=== PATIENT | female | born 1965 | race Caucasian/White ===

== ENCOUNTER → 2020-02-23 | Emergency (ER) | payer OTHER ==
[~2020-02-23] VITALS: Ht 170.2 cm; Wt 102.5 kg
[~2020-02-23] MED LIST: ALPRAZolam 0.5 MG TAB PO ONE; QUEtiapine FUMARATE 25 MG TAB PO ONE; SERTRALINE HCL 50 MG TAB PO ONE
[2020-02-23 21:02] LABS: Alcohol, Urine < 3.0 mg/dL (0-5); Amphetamine Screen, Urine NEGATIVE (NEGATIVE); Barbiturate Scree,Urine NEGATIVE (NEGATIVE); Benzodiazephine Screen, Urine NEGATIVE (NEGATIVE); Cannabinoid Screen, Urine POSITIVE (NEGATIVE); Cocaine Screen, Urine NEGATIVE (NEGATIVE); Opiate Scree,Urine NEGATIVE (NEGATIVE); Phencyclidine Screen, Urine NEGATIVE (NEGATIVE)
[2020-02-23 22:15] VITALS: BP 150/86
== END | disposition home or self-care (01) ==
LOC: ER 18:39
DX: F25.9 Schizoaffective disorder, unspecified (principal); F32.9 Major depressive disorder, single episode, unspecified; F41.9 Anxiety disorder, unspecified
CPT/HCPCS: 36415; 80307; 80320